=== PATIENT | female | born 1995 | race Caucasian/White ===

== ENCOUNTER 2022-03-10 15:27 | Emergency (ER) | payer OTHER ==
[~2022-03-10] VITALS: Ht 162.6 cm; Wt 61.4 kg
[2022-03-10] MEDS ORDERED: MULTTAB20 PO (15:34)
[2022-03-10 17:15] LABS: BASO % 0.3 % (0.0-1.0); EOS % 0.3 % (0.0-3.0); HEMATOCRIT 36.3 % (36.0-47.0); HEMOGLOBIN 12.3 g/dl (12.0-15.5); LYMPH # 1.5 10^3/uL (1.5-5.0); LYMPH % 21.5 % (24.0-44.0); MEAN CORPUSCULAR HEMOGLOBIN 28.9 pg (27.0-33.0); MEAN CORPUSCULAR HGB CONC 33.9 g/dl (32.0-36.5); MEAN CORPUSCULAR VOLUME 85.2 fl (80.0-96.0); MONO # 0.5 10^3/uL (0.0-0.8); MONO % 6.6 % (2.0-8.0); NEUTROPHILS # 5.1 10^3/uL (1.5-8.5); PLATELET COUNT, AUTOMATED 326 10^3/uL (150-450); RED BLOOD COUNT 4.26 10^6/uL (4.00-5.40); WHITE BLOOD COUNT 7.2 10^3/uL (4.0-10.0)
[2022-03-10 18:44] VITALS: BP 110/58
== END 2022-03-10 18:55 | disposition home or self-care (01) ==
LOC: M ED 15:27
DX: O20.8 Other hemorrhage in early pregnancy (principal); V43.62XA Car passenger injured in collision with other type car in traffic accident, initial encounter; Z3A.01 Less than 8 weeks gestation of pregnancy

== ENCOUNTER 2022-04-30 10:02 | Emergency (ER) | payer OTHER ==
[~2022-04-30] VITALS: Ht 162.6 cm; Wt 59.1 kg
[~2022-04-30 10:02] MED LIST: MULTTAB20 PO
[2022-04-30 12:37] LABS: HEMATOCRIT 34.7 % (36.0-47.0); HEMOGLOBIN 11.6 g/dl (12.0-15.5); MEAN CORPUSCULAR HEMOGLOBIN 28.3 pg (27.0-33.0); MEAN CORPUSCULAR HGB CONC 33.4 g/dl (32.0-36.5); MEAN CORPUSCULAR VOLUME 84.6 fl (80.0-96.0); PLATELET COUNT, AUTOMATED 284 10^3/uL (150-450); WHITE BLOOD COUNT 6.2 10^3/uL (4.0-10.0)
[2022-04-30 13:16] LABS: BLOOD UREA NITROGEN 11 MG/DL (7-18); CALCIUM LEVEL 9.3 MG/DL (8.5-10.1); CARBON DIOXIDE LEVEL 25 MEQ/L (21-32); CHLORIDE LEVEL 105 MEQ/L (98-107); CREATININE FOR GFR 0.63 MG/DL (0.55-1.30); GLOMERULAR FILTRATION RATE > 60.0 (>60); GLUCOSE, FASTING 108 MG/DL (70-100); POTASSIUM SERUM 4.1 MEQ/L (3.5-5.1); SODIUM LEVEL 136 MEQ/L (136-145)
[2022-04-30] MEDS ORDERED: ONDA4TAB6 PO (17:26)
[2022-04-30 17:39] VITALS: BP 136/80
== END 2022-04-30 17:54 | disposition home or self-care (01) ==
LOC: M ED 10:02
DX: O21.9 Vomiting of pregnancy, unspecified (principal); Z3A.13 13 weeks gestation of pregnancy; Z79.899 Other long term (current) drug therapy

== ENCOUNTER 2022-05-31 06:10 | Emergency (ER) | payer OTHER ==
[~2022-05-31] VITALS: Ht 162.6 cm; Wt 62.3 kg
[~2022-05-31 06:10] MED LIST changes: +ONDA4TAB6 PO
[2022-05-31 08:10] LABS: BASO % 0.2 % (0.0-1.0); EOS # 0.1 10^3/uL (0.0-0.5); EOS % 1.4 % (0.0-3.0); HEMATOCRIT 30.9 % (36.0-47.0); HEMOGLOBIN 10.6 g/dl (12.0-15.5); LYMPH # 1.6 10^3/uL (1.5-5.0); LYMPH % 27.5 % (24.0-44.0); MEAN CORPUSCULAR HEMOGLOBIN 29.1 pg (27.0-33.0); MEAN CORPUSCULAR HGB CONC 34.3 g/dl (32.0-36.5); MEAN CORPUSCULAR VOLUME 84.9 fl (80.0-96.0); MONO # 0.4 10^3/uL (0.0-0.8); MONO % 6.8 % (2.0-8.0); NEUTROPHILS # 3.7 10^3/uL (1.5-8.5); NEUTROPHILS % 63.9 % (36.0-66.0); PLATELET COUNT, AUTOMATED 285 10^3/uL (150-450); RED BLOOD COUNT 3.64 10^6/uL (4.00-5.40); WHITE BLOOD COUNT 5.9 10^3/uL (4.0-10.0)
[2022-05-31 08:11] LABS: APPEARANCE, URINE MANUAL HAZY (CLEAR); COLOR, URINE MANUAL YELLOW (YELLOW); PROTEIN, URINE MANUAL NEGATIVE (NEGATIVE); SPECIFIC GRAVITY,URINE MANUAL 1.025 (1.002-1.035)
[2022-05-31 08:12] LABS: BILIRUBIN, URINE MANUAL NEGATIVE (NEGATIVE); BLOOD URINE MANUAL POSITIVE (NEGATIVE); GLUCOSE, URINE (UA) MANUAL NEGATIVE (NEGATIVE); KETONE, URINE MANUAL NEGATIVE (NEGATIVE); LEUKOCYTE ESTERASE, URINE MAN POSITIVE (NEGATIVE); NITRITE, URINE MANUAL NEGATIVE (NEGATIVE); UROBILINOGEN, URINE MANUAL NORMAL (NORMAL)
[2022-05-31 08:20] LABS: BACTERIA, URINE LARGE AMOUNT; MUCUS, URINE LARGE AMOUNT (NEGATIVE); SQUAMOUS EPITHELIAL CELL URINE LARGE AMOUNT /hpf (SMALL AMT)
[2022-05-31 08:21] LABS: HYALINE CAST, URINE NONE SEEN /lpf (0-1)
[2022-05-31 09:58] LABS: GC DNA AMPLIFICATION NEGATIVE (NEGATIVE)
[2022-05-31 10:42] VITALS: BP 110/65
== END 2022-05-31 10:45 | disposition home or self-care (01) ==
LOC: M ED 06:10
DX: O46.92 Antepartum hemorrhage, unspecified, second trimester (principal); Z3A.18 18 weeks gestation of pregnancy; Z79.899 Other long term (current) drug therapy

== ENCOUNTER 2022-08-20 17:21 | Emergency (ER) | payer OTHER ==
[~2022-08-20] VITALS: Ht 162.6 cm; Wt 63.2 kg
[2022-08-20 19:28] LABS: BASO % 0.2 % (0.0-1.0); EOS % 0.2 % (0.0-3.0); HEMATOCRIT 31.2 % (36.0-47.0); HEMOGLOBIN 10.6 g/dl (12.0-15.5); LYMPH # 1.1 10^3/uL (1.5-5.0); LYMPH % 11.5 % (24.0-44.0); MEAN CORPUSCULAR VOLUME 85.2 fl (80.0-96.0); MONO # 0.6 10^3/uL (0.0-0.8); MONO % 5.9 % (2.0-8.0); NEUTROPHILS % 81.9 % (36.0-66.0); PLATELET COUNT, AUTOMATED 303 10^3/uL (150-450); RED BLOOD COUNT 3.66 10^6/uL (4.00-5.40); WHITE BLOOD COUNT 9.7 10^3/uL (4.0-10.0)
[2022-08-20 19:39] LABS: INR 0.98; PROTHROMBIN TIME 13.2 SECONDS (12.5-14.5)
[2022-08-20 19:40] LABS: PARTIAL THROMBOPLASTIN TIME 27.8 SECONDS (24.8-34.2)
[2022-08-20 19:46] LABS: BLOOD UREA NITROGEN 12 MG/DL (9-23); CALCIUM LEVEL 8.7 MG/DL (8.5-10.1); CARBON DIOXIDE LEVEL 18 MMOL/L (20-31); CHLORIDE LEVEL 102 MMOL/L (98-107); CREATININE FOR GFR 0.54 MG/DL (0.55-1.30); GLOMERULAR FILTRATION RATE > 60.0 (>60); GLUCOSE, FASTING 72 MG/DL (60-100); POTASSIUM SERUM 4.3 MMOL/L (3.5-5.1); SODIUM LEVEL 136 MMOL/L (136-145)
[2022-08-20] MEDS ORDERED: ENOXAPARIN 100MG/1ML SYRINGE (J1650 PER 10MG) SC ONE (20:25)
[2022-08-20 20:45] VITALS: BP 113/68
== END 2022-08-20 21:11 | disposition home or self-care (01) ==
LOC: M ED 17:21
DX: O22.33 Deep phlebothrombosis in pregnancy, third trimester (principal); I82.412 Acute embolism and thrombosis of left femoral vein; Z3A.30 30 weeks gestation of pregnancy; Z79.810 Long term (current) use of selective estrogen receptor modulators (SERMs)
CPT/HCPCS: 80048; 85025; 85610; 85730; 93041; 93971; 94760; 99284; J1650

== ENCOUNTER 2022-08-24 06:28 | Emergency (ER) | payer OTHER ==
[~2022-08-24] VITALS: Ht 162.6 cm; Wt 63.4 kg
[2022-08-24 07:06] LABS: BASO % 0.1 % (0.0-1.0); EOS # 0.1 10^3/uL (0.0-0.5); EOS % 0.6 % (0.0-3.0); HEMATOCRIT 30.4 % (36.0-47.0); HEMOGLOBIN 10.1 g/dl (12.0-15.5); LYMPH # 1.7 10^3/uL (1.5-5.0); LYMPH % 19.3 % (24.0-44.0); MEAN CORPUSCULAR HEMOGLOBIN 28.4 pg (27.0-33.0); MEAN CORPUSCULAR HGB CONC 33.2 g/dl (32.0-36.5); MEAN CORPUSCULAR VOLUME 85.4 fl (80.0-96.0); MONO # 0.8 10^3/uL (0.0-0.8); NEUTROPHILS # 6.3 10^3/uL (1.5-8.5); NEUTROPHILS % 70.5 % (36.0-66.0); PLATELET COUNT, AUTOMATED 358 10^3/uL (150-450); RED BLOOD COUNT 3.56 10^6/uL (4.00-5.40); WHITE BLOOD COUNT 8.9 10^3/uL (4.0-10.0)
[2022-08-24 07:20] LABS: INR 0.96
[2022-08-24 07:21] LABS: PARTIAL THROMBOPLASTIN TIME 32.1 SECONDS (24.8-34.2)
[2022-08-24 07:33] LABS: ALBUMIN 2.6 G/DL (3.2-5.2); ALKALINE PHOSPHATASE 193 U/L (46-116); ALT/SGPT 23 U/L (7.0-40); AST/SGOT 25 U/L (<34); BILIRUBIN,DIRECT < 0.1 MG/DL (<0.4); BILIRUBIN,TOTAL 0.2 MG/DL (0.3-1.2); BLOOD UREA NITROGEN 10 MG/DL (9-23); CALCIUM LEVEL 8.7 MG/DL (8.5-10.1); CARBON DIOXIDE LEVEL 21 MMOL/L (20-31); CHLORIDE LEVEL 104 MMOL/L (98-107); CK-MB VALUE MASS < 1.0 NG/ML (<3.6); CPK CREATINE PHOSPHOKINASE 16 U/L (34-145); CREATININE FOR GFR 0.53 MG/DL (0.55-1.30); GLOMERULAR FILTRATION RATE > 60.0 (>60); GLUCOSE, FASTING 79 MG/DL (60-100); MB/CK RELATIVE INDEX 6.25 (< OR =4); POTASSIUM SERUM 4.3 MMOL/L (3.5-5.1); SODIUM LEVEL 136 MMOL/L (136-145); TOTAL PROTEIN 6.5 G/DL (5.7-8.2)
[2022-08-24 09:00] VITALS: BP 91/53
[2022-08-24] MEDS ORDERED: ISOVUE-370 76% 100ML VIAL As Ordered ONE (09:00)
== END 2022-08-24 10:27 | disposition home or self-care (01) ==
LOC: M ED 06:28
DX: O22.30 Deep phlebothrombosis in pregnancy, unspecified trimester (principal); O99.519 Diseases of the respiratory system complicating pregnancy, unspecified trimester

== ENCOUNTER 2022-09-25 12:54 | Inpatient (IN) | payer OTHER ==
[~2022-09-25] VITALS: Ht 162.6 cm; Wt 66.6 kg
[2022-09-25] VITALS (8 sets, daily range): BP systolic 124–161; BP diastolic 62–99
[2022-09-25] MEDS ORDERED: LACTATED RINGER'S 1000 ML IV STA (13:19)
[2022-09-25] MEDS ORDERED: NIFEdipine 10 MG CAP PO ONE ×2 (14:25→15:55)
[2022-09-25] MEDS ORDERED: CARBOPROST TROMETHAMINE 250 MCG/ML AMP IM PRN (14:25)
[2022-09-25] MEDS ORDERED: OXYTOCIN DRIP 30 UNITS in IV 1 EA IV PRN ×4 (14:25)
[2022-09-25] MEDS ORDERED: LIDOCAINE 1% MDV 20ML VIAL INFIL PRN (14:25)
[2022-09-25] MEDS: BETAMETHASONE SOLUSPAN 6MG/ML 5ML VIAL IM SCH (14:25)
[2022-09-25] MEDS ORDERED: LOVE1INJ SC (14:41)
[2022-09-25] MEDS ORDERED: ceFAZolin SOD 2 GM in IV 1 EA IV ONE (14:50)
[2022-09-25] MEDS ORDERED: hydrALAZINE 20MG/ML 1ML VIAL IV ONE (15:00)
[2022-09-25] MEDS ORDERED: MAG Sulf (L&D) 4 GM/100 ML 4 GM in IV 1 EA IV ONE (15:00)
[2022-09-25 15:01] LABS: BASO % 0.3 % (0.0-1.0); EOS % 0.3 % (0.0-3.0); HEMATOCRIT 32.2 % (36.0-47.0); HEMOGLOBIN 10.8 g/dl (12.0-15.5); LYMPH # 2.1 10^3/uL (1.5-5.0); LYMPH % 21.1 % (24.0-44.0); MEAN CORPUSCULAR HEMOGLOBIN 27.3 pg (27.0-33.0); MEAN CORPUSCULAR HGB CONC 33.5 g/dl (32.0-36.5); MEAN CORPUSCULAR VOLUME 81.5 fl (80.0-96.0); MONO # 0.6 10^3/uL (0.0-0.8); MONO % 5.8 % (2.0-8.0); NEUTROPHILS % 72.1 % (36.0-66.0); PLATELET COUNT, AUTOMATED 308 10^3/uL (150-450); RED BLOOD COUNT 3.95 10^6/uL (4.00-5.40); WHITE BLOOD COUNT 9.8 10^3/uL (4.0-10.0)
[2022-09-25] MEDS ORDERED: MIDAZOLAM INJ 2MG/2ML VIAL As Ordered ONE (15:07)
[2022-09-25 15:09] LABS: URIC ACID 8.2 MG/DL (3.1-7.8)
[2022-09-25] MEDS ORDERED: fentaNYL 100 MCG/2 ML INJECTION As Ordered ONE ×2 (15:09→15:23)
[2022-09-25 15:11] LABS: LDH LACTATE DEHYDROGENASE 228 U/L (120-246)
[2022-09-25 15:13] LABS: ALT/SGPT 10 U/L (7.0-40); AST/SGOT 19 U/L (<34); BILIRUBIN,TOTAL 0.3 MG/DL (0.3-1.2); GLOMERULAR FILTRATION RATE > 60.0 (>60)
[2022-09-25] MEDS ORDERED: ACETAMINOPHEN 1000MG 100ML IV BAG As Ordered ONE (15:16)
[2022-09-25 15:18] LABS: TOTAL PROTEIN,RANDOM URINE 100.4 MG/DL (0.0-14.0)
[2022-09-25] MEDS ORDERED: ONDANSETRON 4MG 2ML VIAL As Ordered ONE (15:18)
[2022-09-25 15:19] LABS: CORD GAS ABE A -18.5; CORD GAS HCO3 A 15.8 MEQ/L; CORD GAS PCO2 A 76.6 mmHg; CORD GAS PO2 A 29.7 mmHg; CORD GAS SBC A 10.7 MEQ/L; CORD GAS TCO2 A 18.1 MEQ/L
[2022-09-25 15:20] LABS: CORD GAS ABE V -13.6; CORD GAS HCO3 V 16.9 MEQ/L; CORD GAS O2 SAT V 40.9 %; CORD GAS PCO2 V 56.2 mmHg; CORD GAS PH A 6.932 UNITS; CORD GAS PH V 7.095 UNITS; CORD GAS PO2 V 21.5 mmHg; CORD GAS SBC V 13.2 MEQ/L; CORD GAS TCO2 V 18.6 MEQ/L
[2022-09-25] MEDS: hydrALAZINE 20MG/ML 1ML VIAL IV SCH ×2 (15:20→15:40)
[2022-09-25] MEDS ORDERED: KETOROLAC 60MG 2ML VIAL As Ordered ONE (15:24)
[2022-09-25] MEDS ORDERED: SUCCINYLCHOLINE 100MG/5ML SYRINGE As Ordered ONE (15:25)
[2022-09-25] MEDS ORDERED: propofoL 200 MG/20 ML VIAL As Ordered ONE (15:25)
[2022-09-25] MEDS ORDERED: SIMETHICONE 80MG CHEW TAB PO PRN (15:55)
[2022-09-25] MEDS ORDERED: oxyCODONE 5MG TAB PO PRN ×2 (15:55→16:05)
[2022-09-25] MEDS: MAG Sulf (OBGYN) 20GM/500ML 20,000 MG in IV 1 EA IV SCH (16:00)
[2022-09-25] MEDS ORDERED: LR 1,000 ML IV SCH (16:05)
[2022-09-25] MEDS ORDERED: HYDROMORPHONE HCL 0.5 MG/ 0.5 ML SYRINGE IV PRN (16:05)
[2022-09-25] MEDS ORDERED: METOCLOPRAMIDE INJ 10MG/2ML VIAL IV PRN (16:05)
[2022-09-25] MEDS ORDERED: ONDANSETRON 4MG 2ML VIAL IV PRN (16:05)
[2022-09-25] MEDS ORDERED: fentaNYL 100 MCG/2 ML INJECTION IV PRN (16:05)
[2022-09-25 16:25] LABS: APPEARANCE, URINE MANUAL CLEAR (CLEAR); COLOR, URINE MANUAL YELLOW (YELLOW)
[2022-09-25 16:26] LABS: BILIRUBIN, URINE MANUAL NEGATIVE (NEGATIVE); GLUCOSE, URINE (UA) MANUAL NEGATIVE (NEGATIVE); KETONE, URINE MANUAL 1+ mg/dL (NEGATIVE); NITRITE, URINE MANUAL NEGATIVE (NEGATIVE); PROTEIN, URINE MANUAL 1+ mg/dL (NEGATIVE); SPECIFIC GRAVITY,URINE MANUAL 1.005 (1.002-1.035); UROBILINOGEN, URINE MANUAL NORMAL (NORMAL)
[2022-09-25 16:27] LABS: BLOOD URINE MANUAL POSITIVE (NEGATIVE); LEUKOCYTE ESTERASE, URINE MAN NEGATIVE (NEGATIVE)
[2022-09-25 16:43] LABS: GC DNA AMPLIFICATION NEGATIVE (NEGATIVE)
[2022-09-25 16:48] LABS: TOTAL PROTEIN,RANDOM URINE 87.9 MG/DL (0.0-14.0)
[2022-09-25 16:53] LABS: CREATININE,RANDOM URINE 32.6 MG/DL
[2022-09-25 17:01] LABS: BACTERIA, URINE NONE SEEN; HYALINE CAST, URINE NONE SEEN /lpf (0-1); SQUAMOUS EPITHELIAL CELL URINE SMALL AMOUNT /hpf (SMALL AMT); WBC, URINE 0-1 /hpf (0-3)
[2022-09-25 20:48] LABS: PH,URINE MAN 7.5 UNITS (5.0 - 7.0)
[2022-09-25] MEDS: LR 1,000 ML IV SCH ×2 (20:54→20:55)
[2022-09-25] MEDS: DOCUSATE SODIUM 100MG CAPSULE PO SCH (20:56)
[2022-09-25] MEDS: KETOROLAC 30 MG/ML 1ML VIAL IV SCH (20:56)
[2022-09-25] MEDS ORDERED: LOMOTIL 2.5MG/0.025MG TABLET PO ONE (22:00)
[2022-09-25] MEDS: oxyCODONE 5MG TAB PO PRN (23:17)
[2022-09-25] MEDS: ceFAZolin SOD 2 GM in IV 1 EA IV SCH (23:55)
[2022-09-26 02:00] VITALS: BP 133/72
[2022-09-26] MEDS: KETOROLAC 30 MG/ML 1ML VIAL IV SCH ×2 (02:51→08:03)
[2022-09-26 05:33] VITALS: BP 133/77
[2022-09-26] MEDS: LR 1,000 ML IV SCH (06:18)
[2022-09-26] MEDS: oxyCODONE 5MG TAB PO PRN (06:19)
[2022-09-26 06:44] LABS: HEMATOCRIT 27.8 % (36.0-47.0); HEMOGLOBIN 9.3 g/dl (12.0-15.5); MEAN CORPUSCULAR HEMOGLOBIN 27.8 pg (27.0-33.0); MEAN CORPUSCULAR HGB CONC 33.5 g/dl (32.0-36.5); PLATELET COUNT, AUTOMATED 259 10^3/uL (150-450); RED BLOOD COUNT 3.35 10^6/uL (4.00-5.40); WHITE BLOOD COUNT 21.9 10^3/uL (4.0-10.0)
[2022-09-26] MEDS: MAG Sulf (OBGYN) 20GM/500ML 20,000 MG in IV 1 EA IV SCH (07:45)
[2022-09-26] MEDS: BETAMETHASONE SOLUSPAN 6MG/ML 5ML VIAL IM SCH (07:46)
[2022-09-26] MEDS: DOCUSATE SODIUM 100MG CAPSULE PO SCH ×2 (07:59→23:29)
[2022-09-26] MEDS: PRENATAL VITAMINS CHEWABLE TABLET PO SCH (07:59)
[2022-09-26] MEDS ORDERED: ENOXAPARIN 60MG/0.6ML SYRINGE (J1650 PER 10MG) SC SCH (08:00)
[2022-09-26] MEDS: ENOXAPARIN 60MG/0.6ML SYRINGE (J1650 PER 10MG) SC SCH ×2 (09:33→23:30)
[2022-09-26] MEDS: ceFAZolin SOD 2 GM in IV 1 EA IV SCH ×3 (09:34→23:29)
[2022-09-26 10:00] VITALS: BP 107/63
[2022-09-26 14:00] VITALS: BP 132/84
[2022-09-26] MEDS: IBUPROFEN 800 MG TAB PO SCH ×2 (16:14→23:30)
[2022-09-26 18:00] VITALS: BP 123/80
[2022-09-26 22:00] VITALS: BP 129/69
[2022-09-27 02:00] VITALS: BP 118/75
[2022-09-27 05:43] VITALS: BP 143/90
[2022-09-27 06:02] LABS: HEMATOCRIT 25.7 % (36.0-47.0); HEMOGLOBIN 8.3 g/dl (12.0-15.5); MEAN CORPUSCULAR HEMOGLOBIN 27.3 pg (27.0-33.0); MEAN CORPUSCULAR HGB CONC 32.3 g/dl (32.0-36.5); MEAN CORPUSCULAR VOLUME 84.5 fl (80.0-96.0); PLATELET COUNT, AUTOMATED 209 10^3/uL (150-450); RED BLOOD COUNT 3.04 10^6/uL (4.00-5.40); WHITE BLOOD COUNT 10.4 10^3/uL (4.0-10.0)
[2022-09-27] MEDS: oxyCODONE 5MG TAB PO PRN (06:05)
[2022-09-27] MEDS: PRENATAL VITAMINS CHEWABLE TABLET PO SCH (08:56)
[2022-09-27] MEDS: DOCUSATE SODIUM 100MG CAPSULE PO SCH ×2 (08:56→20:15)
[2022-09-27] MEDS: IBUPROFEN 800 MG TAB PO SCH ×2 (08:56→17:04)
[2022-09-27] MEDS: ENOXAPARIN 60MG/0.6ML SYRINGE (J1650 PER 10MG) SC SCH ×2 (08:57→20:17)
[2022-09-27] MEDS ORDERED: MEASLES,MUMPS,RUBELLA VACCINE INJ (MMR-II) SC.IMMUN ONE (09:00)
[2022-09-27 11:40] VITALS: BP 119/65
[2022-09-27 14:00] VITALS: BP 128/74
[2022-09-27 19:12] VITALS: BP 127/74
[2022-09-27 23:15] VITALS: BP 125/75
[2022-09-28] MEDS: IBUPROFEN 800 MG TAB PO SCH ×2 (01:32→08:05)
[2022-09-28 02:00] VITALS: BP 142/81
[2022-09-28 06:07] VITALS: BP 138/82
[2022-09-28 06:25] LABS: HEMATOCRIT 22.1 % (36.0-47.0); HEMOGLOBIN 7.2 g/dl (12.0-15.5); MEAN CORPUSCULAR HEMOGLOBIN 27.6 pg (27.0-33.0); MEAN CORPUSCULAR HGB CONC 32.6 g/dl (32.0-36.5); MEAN CORPUSCULAR VOLUME 84.7 fl (80.0-96.0); PLATELET COUNT, AUTOMATED 185 10^3/uL (150-450); RED BLOOD COUNT 2.61 10^6/uL (4.00-5.40); WHITE BLOOD COUNT 7.7 10^3/uL (4.0-10.0)
[2022-09-28] MEDS: ENOXAPARIN 60MG/0.6ML SYRINGE (J1650 PER 10MG) SC SCH (08:04)
[2022-09-28] MEDS: PRENATAL VITAMINS CHEWABLE TABLET PO SCH (08:04)
[2022-09-28] MEDS: DOCUSATE SODIUM 100MG CAPSULE PO SCH (08:05)
== END 2022-09-28 10:20 | disposition home or self-care (01) | DRG 771 ==
LOC: M LDO 12:54 → M LDI 14:20 → M OBS 16:55
PROVIDERS: ADMIT Advanced Practice Midwife; ATTEND Advanced Practice Midwife
PROC: 10D00Z1 Extraction of Products of Conception, Low, Open Approach (ICD-10-PCS; principal; 2022-09-25 16:04)
DX: O60.14X0 Preterm labor third trimester with preterm delivery third trimester, not applicable or unspecified (principal); O45.93 Premature separation of placenta, unspecified, third trimester; Z3A.34 34 weeks gestation of pregnancy; Z37.0 Single live birth; O76 Abnormality in fetal heart rate and rhythm complicating labor and delivery; O64.1XX0 Obstructed labor due to breech presentation, not applicable or unspecified; O14.04 Mild to moderate pre-eclampsia, complicating childbirth; O99.02 Anemia complicating childbirth; Z86.718 Personal history of other venous thrombosis and embolism; Z79.899 Other long term (current) drug therapy

== ENCOUNTER → 2023-03-20 | Outpatient (CLI) | payer OTHER ==
[~2023-03-20] MED LIST changes: +LOVE1INJ SC
== END ==
LOC: M RAD 08:55
PROVIDERS: ATTEND Specialist
DX: I82.402 Acute embolism and thrombosis of unspecified deep veins of left lower extremity (principal); Z53.9 Procedure and treatment not carried out, unspecified reason

== ENCOUNTER → 2023-03-29 | Outpatient (CLI) | payer OTHER | LOC: M RAD 12:07 | PROVIDERS: ATTEND Specialist | DX: I82.412 Acute embolism and thrombosis of left femoral vein (principal); M71.21 Synovial cyst of popliteal space [Baker], right knee ==

== ENCOUNTER 2023-07-19 11:10 | Outpatient (CLI) | payer OTHER ==
[~2023-07-19] VITALS: Ht 162.6 cm; Wt 64.4 kg
[2023-07-19 11:22] VITALS: BP 129/67
[2023-07-19 13:50] LABS: AMORPHOUS SEDIMENT SMALL (NEGATIVE); APPEARANCE, URINE TURBID (CLEAR); BACTERIA, URINE AUTO NEGATIVE (NEGATIVE); BILIRUBIN, URINE AUTO NEGATIVE (NEGATIVE); BLOOD, URINE BLOOD NEGATIVE (NEGATIVE); COLOR, URINE YELLOW (YELLOW); GLUCOSE, URINE (UA) AUTO NEGATIVE (NEGATIVE); KETONE, URINE AUTO NEGATIVE (NEGATIVE); LEUKOCYTE ESTERASE, URINE AUTO NEGATIVE (NEGATIVE); MUCUS, URINE SMALL (NEGATIVE); NITRITE, URINE AUTO NEGATIVE (NEGATIVE); PROTEIN, URINE AUTO 1+ mg/dL (NEGATIVE); RBC, URINE AUTO 0 /HPF (0-3); SPECIFIC GRAVITY URINE AUTO 1.026 (1.002-1.035); SQUAMOUS EPITHELIAL CELL UR AU 9 /HPF (0-6); UROBILINOGEN, URINE AUTO 0.2 mg/dL (0.0-2.0); WBC, URINE AUTO 0 /HPF (0-3)
[2023-07-19 14:10] VITALS: BP 122/62
== END 2023-07-19 14:13 | disposition home or self-care (01) ==
LOC: M LDO 11:10
PROVIDERS: ATTEND Obstetrics & Gynecology
DX: O99.282 Endocrine, nutritional and metabolic diseases complicating pregnancy, second trimester (principal); E86.0 Dehydration; Z3A.22 22 weeks gestation of pregnancy

== ENCOUNTER 2023-09-05 09:09 | Outpatient (CLI) | payer OTHER ==
[~2023-09-05] VITALS: Ht 162.6 cm; Wt 70.0 kg
[~2023-09-05 09:09] MED LIST changes: +ALBUTEROL SULFATE 2.5MG/0.5ML INH NEB SOLN INH PRN; +EPINEPHrine INJ 1 MG/ML 1ML AMP IM PRN; +IRON SUCROSE 300 MG in NS 250 ML OVER 90 MIN. IV ONE; +NS 1,000 ML IV SCH; +diphenhydrAMINE 50MG/ML VIAL IV PRN; +methylPREDNISolone 125MG 2ML VIAL IV PRN
[2023-09-05 09:40] VITALS: BP 105/54; O2SAT 100
[2023-09-05 11:53] VITALS: BP 98/54; O2SAT 98
== END 2023-09-05 12:00 ==
LOC: M INFU 09:09
PROVIDERS: ATTEND Student in an Organized Health Care Education/Training Program
DX: D50.9 Iron deficiency anemia, unspecified (principal)
CPT/HCPCS: 96365; 96366; J1756

== ENCOUNTER 2023-09-12 08:25 | Outpatient (CLI) | payer OTHER ==
[2023-09-12 08:25] VITALS: BP 104/60; O2SAT 100
[~2023-09-12 08:25] MED LIST changes: -IRON SUCROSE 300 MG in NS 250 ML OVER 90 MIN. IV ONE; -NS 1,000 ML IV SCH
[2023-09-12] MEDS ORDERED: IRON SUCROSE 300 MG in NS 250 ML OVER 90 MIN. IV ONE (08:30)
[2023-09-12] MEDS ORDERED: NS 1,000 ML IV SCH (08:30)
[2023-09-12 10:45] VITALS: BP 102/55; O2SAT 100
== END 2023-09-12 10:50 | disposition home or self-care (01) ==
LOC: M INFU 08:25
PROVIDERS: ATTEND Student in an Organized Health Care Education/Training Program
DX: D50.9 Iron deficiency anemia, unspecified (principal)
CPT/HCPCS: 96365; J1756

== ENCOUNTER 2023-09-19 10:50 | Outpatient (CLI) | payer OTHER ==
[~2023-09-19] VITALS: Ht 162.6 cm; Wt 68.2 kg
[2023-09-19 10:50] VITALS: BP 106/52; O2SAT 98
[2023-09-19] MEDS ORDERED: NS 1,000 ML IV SCH (11:00)
[2023-09-19] MEDS: IRON SUCROSE 300 MG in NS 250 ML OVER 90 MIN. IV ONE (11:20)
[2023-09-19 13:10] VITALS: BP 119/55; O2SAT 98
== END 2023-09-19 13:15 ==
LOC: M INFU 10:50
PROVIDERS: ATTEND Student in an Organized Health Care Education/Training Program
DX: O99.013 Anemia complicating pregnancy, third trimester (principal); Z3A.28 28 weeks gestation of pregnancy
CPT/HCPCS: 96365; 96366; 96372; J1756